=== PATIENT | male | born 1980 | race Caucasian/White ===

== ENCOUNTER → 2016-11-05 | Outpatient (CLI) | payer BC ==
[~2016-11-05] MED LIST: CYCL10TA45 PO
[2016-11-05 14:29] VITALS: BP 126/80
--- NOTE | 2016-11-05 14:29 | Urgent Care T Sheet Gen (E) ---
Intake General Temperature (Fahrenheit): 97.8 Pulse: 93 Blood Pressure Systolic: 126 Blood Pressure Diastolic: 80 Respirations: 18 SPO2: 97 Description of Symptoms Patient presents with L lower back pain since this AM. Patient thinks he slept wrong. Notes non-radiating pain. Also complains of muscle tightness to the area. No LE weakness or numbness. No loss of bowel or bladder function. No meds. History of Present Illness Allergies: Coded Allergies: ibuprofen (Verified Allergy, Unknown, 05/02/16) Home Meds Active Scripts Cyclobenzaprine HCl (Flexeril)10 Mg [id number] Mg PO TID PRN SPASMS #15 TAB Ref 0 Prov:TULIO PEDRO 11/05/16 Respiratory Constitutional Symptoms: No syptoms reported Musculoskeletal: Muscle pain Muscle stiffness Skin: No symptoms reported Neurological: No symptoms reported All Other Systems Reviewed Remaining Systems: All other systems reviewed with negative findings Past Mtvfvmc-Rklojr-Asqowm Hx Patient's Social History Alcohol Use: Occasionally Uses Smoking Status: Current every day smoker Recent foreign travel: No Surgeries/Hospitalizations Hospitalization/Surgery Hx: gallbladder L forarm plate and screws Respiratory Respiratory History: None Cardiovascular Cardiovascular History: None Gastrointestinal GI/Endocrine History: None Diabetes Diabetes: No Psychosocial Behavior Disorders: None Physical Exam Physical Exam General Appearance: WD/WN No apparent distress Back Exam: Muscle spasm (spasm and tenderness noted along the L lower back. palpation doesn't cause radiating pain. no pain along the SI joints or piriformis muscles. no pain with stretching the pirformis muscle.) Skin Exam: Normal color No rashes Neurologic/Psychiatric Exam: No motor deficits No sensory deficits (normal DTRs) Departure Urgent Care Impression Impression: Primary Impression: Muscle spasm of back Departure Disposition: 01 HOME OR SELF-CARE Condition: Stable Additional Instructions: I have started the patient on Flexeril prn. Watch for lethargy. Since he can't take ibuprofen, I suggested applying Capsaicin cream as needed to the area. No work today. Note was given. Return as needed Patient understands DC instructions. All questions were answered. Scripts Cyclobenzaprine HCl (Flexeril)10 Mg [id number] Mg PO TID PRN SPASMS #15 TAB Ref 0 Prov:TULIO PEDRO 11/05/16 End of report . TULIO PEDRO Nov 05, 2016 13:20
== END ==
LOC: MHUC 13:04
PROVIDERS: ATTEND Physician Assistant
DX: M62.830 Muscle spasm of back (principal)
CPT/HCPCS: 99213